=== PATIENT | male | born 1980 | race Caucasian/White ===

== ENCOUNTER 2018-08-29 01:45 | Emergency (ER) | END 2018-08-29 02:51 | disposition left against medical advice (07) | LOC: ER 01:45 | DX: Z53.21 Procedure and treatment not carried out due to patient leaving prior to being seen by health care provider (principal) ==

== ENCOUNTER 2018-09-08 09:28 | Emergency (ER) | payer OTHER ==
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
[2018-09-08 10:31] LABS: ABSOLUTE BASOPHILS # (AUTO) 0.1 10^3/uL (0.0-0.2); ABSOLUTE LYMPHOCYTES (AUTO) 1.3 10^3/uL (0.5-4.7); ABSOLUTE MONOCYTES (AUTO) 0.6 10^3/uL (0.1-1.4); ABSOLUTE NEUT (AUTO) 4.3 10^3/uL (1.7-8.2); BASOPHILS % (AUTO) 1.1 % (0-2); EOSINOPHILS % (AUTO) 0.3 % (0-6); HEMATOCRIT 44.6 % (37.9-51.0); HEMOGLOBIN 15.4 g/dL (13.5-17.0); LYMPHOCYTES % (AUTO) 20.3 % (13-45); MEAN CORPUSCULAR HEMOGLOBIN 30.1 pg (27.0-33.4); MEAN CORPUSCULAR HGB CONC 34.4 g/dL (32.0-36.0); MEAN CORPUSCULAR VOLUME 88 fl (80-97); MONOCYTES % (AUTO) 9.5 % (3-13); PLATELET COUNT 326 10^3/uL (150-450); RED CELL DISTRIBUTION WIDTH 14.7 % (11.5-14.0); SEGMENTED NEUTROPHILS % (AUTO) 68.8 % (42-78); TOTAL CELLS COUNTED % (AUTO) 100 %; WHITE BLOOD COUNT 6.3 10^3/uL (4.0-10.5)
[2018-09-08 11:07] LABS: ALANINE AMINOTRANSFERASE 81 U/L (21-72); ALBUMIN 4.8 g/dL (3.5-5.0); ALKALINE PHOSPHATASE 87 U/L (38-126); ANION GAP 12 (5-19); ASPARTATE AMINO TRANSFERASE 74 U/L (17-59); BILIRUBIN,DIRECT 0.4 mg/dL (0.0-0.4); BILIRUBIN,TOTAL 1.2 mg/dL (0.2-1.3); BLOOD UREA NITROGEN 14 mg/dL (7-20); CARBON DIOXIDE 24 mmol/L (22-30); CHLORIDE 104 mmol/L (98-107); GLUCOSE 130 mg/dL (75-110); SODIUM 139.9 mmol/L (137-145); TOTAL PROTEIN 8.3 g/dL (6.3-8.2)
[2018-09-08 11:10] LABS: ACETAMINOPHEN < 10 ug/mL (10-30); ALCOHOL < 10 mg/dL (NONE DETECTED); SALICYLATE < 1.0 mg/dL (2.0-20.0)
[2018-09-08 12:04] VITALS: BP 185/102
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
--- NOTE | 2018-09-08 13:25 | EKG REPORT ---
SEVERITY:- BORDERLINE ECG - SINUS RHYTHM BORDERLINE T ABNORMALITIES, INFERIOR LEADS : Confirmed by: Bert Reid MD 08-Sep-2018 13:24:17
== END 2018-09-08 12:30 | disposition home or self-care (01) ==
LOC: ER 09:28
DX: F10.20 Alcohol dependence, uncomplicated (principal); T21.01XD Burn of unspecified degree of chest wall, subsequent encounter; T22.00XD Burn of unspecified degree of shoulder and upper limb, except wrist and hand, unspecified site, subsequent encounter; X08.8XXD Exposure to other specified smoke, fire and flames, subsequent encounter; Z98.890 Other specified postprocedural states; I10 Essential (primary) hypertension; Z59.0 Homelessness; F17.290 Nicotine dependence, other tobacco product, uncomplicated
CPT/HCPCS: 36415; 80053; 80307; 85025; 93005; 93010; 99285

== ENCOUNTER 2018-09-13 10:11 | Emergency (ER) | payer OTHER ==
[2018-09-13 10:25] VITALS: BP 143/87
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
== END 2018-09-13 11:24 | disposition home or self-care (01) ==
LOC: ER 10:11
DX: T21.34XD Burn of third degree of lower back, subsequent encounter (principal); T22.00XD Burn of unspecified degree of shoulder and upper limb, except wrist and hand, unspecified site, subsequent encounter; X08.8XXD Exposure to other specified smoke, fire and flames, subsequent encounter; Z87.891 Personal history of nicotine dependence; I10 Essential (primary) hypertension
CPT/HCPCS: 99281

== ENCOUNTER 2018-09-13 16:08 | Emergency (ER) | payer OTHER ==
[2018-09-13 16:19] VITALS: BP 157/83
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
== END 2018-09-13 17:11 | disposition home or self-care (01) ==
LOC: ER 16:08
DX: Z76.0 Encounter for issue of repeat prescription (principal); F10.10 Alcohol abuse, uncomplicated; Z91.14 Patient's other noncompliance with medication regimen; T21.04XD Burn of unspecified degree of lower back, subsequent encounter; T22.00XD Burn of unspecified degree of shoulder and upper limb, except wrist and hand, unspecified site, subsequent encounter; X08.8XXD Exposure to other specified smoke, fire and flames, subsequent encounter
CPT/HCPCS: 99281

== ENCOUNTER 2018-09-25 17:37 | Emergency (ER) | payer OTHER ==
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
[2018-09-25 23:02] VITALS: BP 154/95
== END 2018-09-25 22:40 | disposition home or self-care (01) ==
LOC: ER 17:37
DX: T21.24XD Burn of second degree of lower back, subsequent encounter (principal); T22.20XD Burn of second degree of shoulder and upper limb, except wrist and hand, unspecified site, subsequent encounter; X08.8XXD Exposure to other specified smoke, fire and flames, subsequent encounter
CPT/HCPCS: 99282